=== PATIENT | female | born 1975 | race Caucasian/White ===

== ENCOUNTER 2024-01-25 05:18 | Emergency (ER) | payer MEDICAID ==
--- NOTE | 2024-01-25 05:18 | ED Physician Documentation ---
History of Present Illness - Stated complaint Stated Complaint: HALLUCINATIONS - History obtained from History obtained from: Patient, EMS - Additonal information Additional information: BIBA. HPI from EMS, patient. Patient is brought by ambulance from [facility]. She has been there 3 days for treatment of alcoholism/withdrawal. Since yesterday evening (approximately 8 to 10 hours [employer]), the patient says she began to experience visual and auditory hallucinations. She describes seeing her son in the room with her at [facility] and hearing and making a lot of noise. She does not find these hallucinations distressing/upsetting aside from knowing that her son is not actually in the room. She says that, at times, the hallucinations were so real that she reached out to see if he was actually there just to find that "it was just air" (per patient). The patient tells me she has been drinking on a heavy and daily basis for approximately the last 2 to 3 weeks. [facility]. Denies SI/HI, denies drug use. Per EMS, patient had not been evaluated medically prior to intake at [facility] and thus staff is requesting appropriate testing for medical clearance Review of Systems Constitutional: denies: Chills, Sweats Cardiac: denies: Chest pain / pressure, Palpitations Respiratory: denies: Dyspnea, Cough GI: reports: Nausea. denies: Abdominal Pain Neurologic: denies: Generalized weakness, Focal weakness, Numbness, Headache, Head injury Psychiatric: reports: Hallucinations, Anxiety. denies: Depressed, Suicidal, Homicidal PD PAST MEDICAL HISTORY - Past Medical History Past Medical History: Yes GI: Other ([place] disease) - Allergies Allergies/Adverse Reactions: Allergies Allergy/AdvReac Type Severity Reaction Status Date / Time caffeine AdvReac Unknown Verified 01/25/24 05:31 codeine AdvReac Unknown Verified 01/25/24 05:31 ibuprofen AdvReac Unknown Verified 01/25/24 05:31 PD ED PE NORMAL - Vitals Vital signs reviewed: Yes - General General: Alert and oriented X 3, No acute distress, Well developed/nourished - HEENT HEENT: PERRL, EOMI, Moist mucous membranes - Neck Neck: Supple, no meningeal sign - Cardiac Cardiac: RRR, No murmur - Respiratory Respiratory: No respiratory distress, Clear bilaterally - Abdomen Abdomen: Soft, Non tender - Back Back: No CVA TTP - Derm Derm: Normal color, Warm and dry - Neuro Neuro: Alert and oriented X 3, range rider 2-12 intact, No motor deficit, No sensory deficit, Normal speech Eye Opening: Spontaneous Motor: Obeys Commands Verbal: Oriented GCS Score: 15 - Psych Psych: Normal mood, Normal affect Results - Vitals Vitals: Vital Signs - 24 hr 01/25/24 01/25/24 05:25 08:05 Temperature 36.8 C Heart Rate 93 95 Respiratory 15 16 Rate Blood Pressure 150/97 H 143/99 H O2 Saturation 98 99 Oxygen O2 Source Room air - Labs Labs: Laboratory Tests 01/25/24 01/25/24 01/25/24 06:01 06:01 06:09 WBC 3.8 L RBC 4.08 L Hgb 13.2 Hct 37.1 MCV 90.9 MCH 32.4 H MCHC 35.6 RDW 12.3 Plt Count 100 L MPV 9.1 Neut # (Auto) 2.0 Lymph # (Auto) 1.2 L Cameron # (Auto) 0.4 Eos # (Auto) 0.1 Baso # (Auto) 0.0 Absolute Nucleated RBC 0.00 Nucleated RBC % 0.0 Sodium 134 L Potassium 3.1 L Chloride 92 L Carbon Dioxide 32 Anion Gap 10.0 BUN 9 Creatinine 0.6 Estimated GFR (MDRD) 108 Glucose 126 H Calcium 10.3 Magnesium 1.3 L Total Bilirubin 5.1 H AST 51 H ALT 39 Alkaline Phosphatase 68 Total Creatine Kinase 77 Total Protein 6.7 Albumin 4.7 Globulin 2.0 L Albumin/Globulin Ratio 2.4 H Lipase 46 TSH 3.01 Urine Color COLORLESS Urine Clarity CLEAR Urine pH 7.0 Ur Specific [place] <=1.005 Urine Protein NEGATIVE Urine Glucose (UA) NEGATIVE Urine Ketones NEGATIVE Urine Occult Blood NEGATIVE Urine Nitrite NEGATIVE Urine Bilirubin NEGATIVE Urine Urobilinogen 0.2 (NORMAL) Ur Leukocyte Esterase NEGATIVE Ur Microscopic Review NOT INDICATED Urine Culture Comments NOT INDICATED Urine HCG, Qual NEGATIVE Salicylates < 1.5 Urine Opiates Screen NEGATIVE Ur Buprenorphine Scrn NEGATIVE Ur Oxycodone Screen NEGATIVE Urine Methadone Screen NEGATIVE Acetaminophen 0.2 Ur Barbiturates Screen NEGATIVE Ur Tricyclics Screen NEGATIVE Ur Phencyclidine Scrn NEGATIVE Ur Amphetamine Screen NEGATIVE U Methamphetamines Scrn NEGATIVE U Benzodiazepines Scrn POSITIVE H Urine Cocaine Screen NEGATIVE U Cannabinoids Screen NEGATIVE Ur Drug Screen Comment CUTOFF CONC BELOW: Ethyl Alcohol < 10.0 PD Medical Decision Making - ED course Complexity details: reviewed results, re-evaluated patient, considered differential, d/w patient ED course: Patient is AAOx3, conversant, polite, answers questions quickly and appropriately. She presents from [facility] stabilization facility after being there for 3 days. The documentation brought in along with her indicates onset of hallucinations that coincide with her alcohol level decreasing to 0 (from nearly 0.300 when she was first taken into [facility] yesterday). Thus, her hallucinations are very likely due to alcohol withdrawal. There are no particularly concerning findings on tonight's tests. I do not have any previous results on [facility] records for comparative purposes. She has mild leukopenia (WBC 3.8), mild thrombocytopenia (100). These are likely a result of marrow suppression due to alcoholism. Mild hypokalemia (3.1); she is given 25 meq p.o. potassium bicarbonate. Mild hypomagnesemia (1.3); she is given 400 mg of magnesium oxide p.o. Bilirubin is elevated (5.1), but patient indicates that she has Gilbert's disease which could account for this finding, particularly with minimally elevated AST and normal ALT. Urine hCG negative, normal urinalysis. Normal TSH, normal lipase. Urine drug screen is positive for benzodiazepines (she has been receiving benzodiazepines at [facility]), negative for the other drugs tested on this UDS. On reevaluation, the patient is in NAD. She is complaining of increasing nausea and feeling anxious. She says she is due for doses of antinausea medication as well as lorazepam, and thus she is given 1 mg p.o. lorazepam as well as 4 mg TL Zofran. At this point, the patient is medically cleared for return to [facility]. Departure - Departure Disposition: 01 Home, Self Care Clinical Impression: Alcohol withdrawal Qualifiers: Complication of substance-induced condition: with perceptual disturbance Qualified Code(s): F10.932 - Alcohol use, unspecified with withdrawal with perceptual disturbance Condition: Good Instructions: ED Withdrawal Alcohol Comments: There were no particularly concerning findings on the blood test performed today. Your white blood cell count and platelet counts are both mildly below the normal range. Your potassium was mildly below normal range (3.1). Your magnesium was also slightly low (1.3). You were given oral potassium and magnesium during your ER stay. You were also given 1 mg lorazepam and 4mg zofran (both oral medications).
[2024-01-25 06:06] LABS: BASOPHILS % (AUTO) 1.1 %; EOSINOPHILS # (AUTO) 0.1 10^3/uL (0.0-0.7); EOSINOPHILS % (AUTO) 3.2 %; HCT - HEMATOCRIT 37.1 % (37.0-47.0); HGB - HEMOGLOBIN 13.2 g/dL (12.0-16.0); LYMPHOCYTES # (AUTO) 1.2 10^3/uL (1.5-3.5); LYMPHOCYTES % (AUTO) 31.6 %; MEAN CORPUSCULAR HEMOGLOBIN 32.4 pg (27.0-31.0); MEAN CORPUSCULAR HGB CONC 35.6 g/dL (32.0-36.0); MEAN CORPUSCULAR VOLUME 90.9 fL (81.0-99.0); MEAN PLATELET VOLUME 9.1 fL (7.9-10.8); MONOCYTES # (AUTO) 0.4 10^3/uL (0.0-1.0); MONOCYTES % (AUTO) 10.4 %; NEUTROPHILS % (AUTO) 53.4 %; PLT - PLATELET COUNT 100 10^3/uL (130-450); RED BLOOD COUNT 4.08 10^6/uL (4.20-5.40); RED CELL DISTRIBUTION WIDTH 12.3 % (12.0-15.0); WHITE BLOOD COUNT 3.8 x10^3/uL (4.8-10.8)
[2024-01-25 06:19] LABS: ACETAMINOPHEN 0.2 ug/mL; ALBUMIN 4.7 g/dL (3.2-5.5); ALBUMIN/GLOBULIN RATIO 2.4 (1.0-2.2); ALKALINE PHOSPHATASE 68 IU/L (42-121); ALT ALANINE AMINOTRANSFERASE 39 IU/L (10-60); AST ASPARTATE AMINOTRANSFERASE 51 IU/L (10-42); BILIRUBIN,TOTAL 5.1 mg/dL (0.2-1.0); BUN - BLOOD UREA NITROGEN 9 mg/dL (6-20); CALCIUM 10.3 mg/dL (8.5-10.3); CARBON DIOXIDE - CO2 32 mmol/L (21-32); CHLORIDE 92 mmol/L (101-111); CK- CREATINE KINASE 77 IU/L (30-223); CREATININE 0.6 mg/dL (0.6-1.3); ETOH - ETHANOL < 10.0 mg/dL; GFR - MDRD 108 (>89); GLUCOSE 126 mg/dL (74-104); LIPASE 46 U/L (11-82); MAGNESIUM 1.3 mg/dL (1.7-2.3); POTASSIUM 3.1 mmol/L (3.5-4.5); SODIUM 134 mmol/L (135-145); TOTAL PROTEIN 6.7 g/dL (6.4-8.9)
[2024-01-25 06:20] LABS: SALICYLATE < 1.5 mg/dL
[2024-01-25 06:34] LABS: THYROID STIMULATING HORMONE 3.01 uIU/mL (0.34-5.60)
[2024-01-25] MEDS: MAGNESIUM OXIDE 400 MG TABLET PO STA (06:42)
[2024-01-25] MEDS: POTASSIUM BICARB 25 MEQ TABLET PO STA (06:42)
[2024-01-25] MEDS: MAGNESIUM SULFATE 2 GRAM 2 GM/50 ML BAG IV ONE (06:42)
[2024-01-25 06:57] LABS: BILIRUBIN,URINE NEGATIVE (NEGATIVE); GLUCOSE, URINE (UA) NEGATIVE (NEGATIVE); KETONES,URINE (UA) NEGATIVE (NEGATIVE); LEUKOCYTE ESTERASE, URINE NEGATIVE (NEGATIVE); NITRITE,URINE NEGATIVE (NEGATIVE); OCCULT BLOOD,URINE NEGATIVE (NEGATIVE); PROTEIN,URINE NEGATIVE (NEGATIVE); UROBILINOGEN,URINE 0.2 (NORMAL) E.U./dL (NORMAL)
[2024-01-25 06:58] LABS: CLARITY,URINE CLEAR (CLEAR)
[2024-01-25 06:59] LABS: HCG UR QUAL NEGATIVE
[2024-01-25 07:09] LABS: AMPHETAMINE SCREEN,URINE NEGATIVE (NEGATIVE); BARBITURATE SCREEN,UR NEGATIVE (NEGATIVE); BENZODIAZEPINES SCREEN, URINE POSITIVE (NEGATIVE); BUPRENORPHINE SCREEN, URINE NEGATIVE (NEGATIVE); COCAINE SCREEN URINE NEGATIVE (NEGATIVE); METHADONE SCREEN, URINE NEGATIVE (NEGATIVE); METHAMPHETAMINES SCREEN, URINE NEGATIVE (NEGATIVE); OPIATE SCREEN, URINE NEGATIVE (NEGATIVE); OXYCODONE SCREEN, URINE NEGATIVE (NEGATIVE); THC CANNABINOID SCREEN, URINE NEGATIVE (NEGATIVE); TRICYCLIC ANTIDEPRESSANT,URINE NEGATIVE (NEGATIVE)
[2024-01-25] MEDS: ONDANSETRON ODT 4 MG TABLET TL STA (07:49)
[2024-01-25] MEDS: LORazepam 0.5 MG TABLET PO STA (07:49)
[2024-01-25 12:21] VITALS: BP 138/87; O2SAT 96
== END 2024-01-25 12:15 | disposition home or self-care (01) ==
LOC: ED 05:18
DX: F10.932 Alcohol use, unspecified with withdrawal with perceptual disturbance (principal); E80.4 Gilbert syndrome
CPT/HCPCS: 36415; 80053; 80143; 80179; 80306; 81003; 81025; 82077; 82550; 83690; 83735; 84443; 85025; 99283; 99284; A9270; Q0162; 81001; 87086